=== PATIENT | female | born 1980 | race African-American/Black ===

== ENCOUNTER 2025-01-09 16:41 | Inpatient (IN) | payer OTHER, SELFPAY ==
[2025-01-09 16:52] VITALS: BP 160/100; PULSE 60; O2SAT 98
[2025-01-09 17:18] VITALS: BP 158/88; PULSE 67; RESP 16; TEMP 36.8; O2SAT 100; BMI 33.0
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
[2025-01-09 17:28] LABS: MANUAL DIFF FLAG NO
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
--- NOTE | 2025-01-09 17:29 | MHC.EDTECH ---
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
[2025-01-09 17:44] LABS: Basophils Percent Auto 0.8 % (0-2); Eosinophils Absolute Auto 0.1 X10*3/uL (0.0-0.4); Eosinophils Percent Auto 2.9 % (0-4); Hematocrit 39.7 % (37.0-47.0); Hemoglobin 13.1 g/dl (12.0-16.0); Imm Gran Abs Auto 0.01 X10*3/uL (0.00-0.03); Imm Gran Pct Auto 0.3 % (0.0-0.4); Lymphocytes Percent Auto 54.4 % (20-40); Mean Corpuscular Hemoglobin 29.4 pg (27.0-33.0); Mean Platelet Volume 10.5 fL (9.4-12.3); Monocytes Absolute Auto 0.5 X10*3/uL (0.1-1.2); Monocytes Percent Auto 13.7 % (2-11); Neutrophils Percent Auto 27.9 % (45-73); Platelet Count 279 X10*3/uL (160-400); Red Blood Count 4.46 X10*6/uL (4.20-5.50); Red Cell Distribution Width 12.4 % (11.0-16.0); White Blood Count 3.7 X10*3/uL (4.8-10.8)
[2025-01-09 17:45] LABS: Acetaminophen LAB < 3 mcg/mL (<30); Salicylate < 5.0 mg/dL (15-30)
[2025-01-09 17:52] LABS: Alanine Aminotransferase 12 U/L (0-31); Albumin Level 3.9 g/dL (3.5-5.0); Alkaline Phosphatase 82 U/L (39-117); Anion Gap 12 (12-20); Aspartate Amino Transferase 26 U/L (5-31); Bilirubin Total 0.4 mg/dL (0.0-1.0); Blood Urea Nitrogen 7 mg/dL (9-16); Calcium 9.2 mg/dL (8.4-10.2); Carbon Dioxide 26 mmol/L (22-29); Chloride 103 mmol/L (96-108); Creatinine Clr Calc Pharmacy 114.7; Estimated Glomerular Filt Rate > 60; Ethanol < 10 mg/dL; Glucose Random 84 mg/dL (60-115); HCG Quantitative < 2 mIU/mL; Magnesium 1.6 mg/dL (1.6-2.6); Potassium 3.7 mmol/L (3.3-5.1); Sodium 137 mmol/L (135-145); Total Protein 7.3 g/dL (6.5-8.0)
[2025-01-09] MEDS: FLUoxetine HCl 20 MG CAPSULE PO (18:39)
[2025-01-09] MEDS: busPIRone HCl 10 MG TABLET PO (18:39)
[2025-01-09] MEDS: OXcarbazepine 300 MG TABLET PO (18:39)
[2025-01-09] MEDS: QUEtiapine Fumarate 200 MG TABLET PO (18:39)
[2025-01-09 19:05] LABS: Appearance Urine Cloudy; Color Urine Yellow; Glucose Urine UA Negative (Negative); Leukocyte Esterase Urine Negative (Negative); Nitrite Urine Negative (Negative); PH 5.5 (5.0-9.0); Urine Blood Negative (Negative); Urine Ketones 15 mg/dL (Negative); Urine Protein Negative (Neg-Trace)
[2025-01-09 19:17] LABS: Amphetamine Screen Urine Not Detected (Not Detect); Barbiturates, Urine Not Detected (Not Detect); Benzodiazepines Screen Urine Not Detected (Not Detect); Buprenorphine Scr Positive (Not Detect); Cannabinoid Screen Urine Not Detected (Not Detect); Cocaine Screen Urine Not Detected (Not Detect); Fentanyl, urine Not Detected (Not Detect); Methadone Screen, Urine Not Detected (Not Detect); Opiate Screen Urine Not Detected (Not Detect); Oxycodone Screen Urine Not Detected (Not Detect); Phencyclidine Screen Urine Not Detected (Not Detect)
--- NOTE | 2025-01-09 20:07 | PC.NURSE ---
pt a&ox4, respirations even and unlabored. pt medicated prior to this rn, pt tolerating well and sleeping.
[2025-01-09 20:42] VITALS: BP 105/62; PULSE 72; RESP 16; O2SAT 99
[2025-01-10] MEDS: diazePAM 5 MG TABLET PO ×3 (01:34→20:47)
--- NOTE | 2025-01-10 01:39 | PC.NURSE ---
pt reporting increased anxiety at this time, pt medicated per nov. pt given ice cream per request.
[2025-01-10 06:30] VITALS: BP 152/64; PULSE 58; RESP 16; TEMP 36.9; O2SAT 95
--- NOTE | 2025-01-10 07:58 | PC.NURSE ---
Care team meeting with pt at bedside
--- NOTE | 2025-01-10 09:33 | PHA.MEDREC ---
Addendum entered by [facility] 01/10/25 09:47: PDMP also confirms patient is picking up suboxone 04/17 and suboxone 4/ with same dosing Original Note: Pharmacy Consult ? Medication Reconciliation Pharmacy has reviewed the medication reconciliation done by RN. This [facility] obtained the list the RN used to completed the med list and this [facility] noticed several discrepancies. RN omitted omeprazole and ventolin. RN also had the incorrect dosing of suboxone.
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
[2025-01-10 10:25] VITALS: BP 128/73; PULSE 63; RESP 16; TEMP 36.7; O2SAT 96
[2025-01-10 10:30] VITALS: BP 128/73
[2025-01-10] MEDS: OXcarbazepine 300 MG TABLET PO ×2 (10:30→19:21)
[2025-01-10] MEDS: busPIRone HCl 10 MG TABLET PO ×2 (10:30→19:21)
[2025-01-10] MEDS: lisinopriL 40 MG TABLET PO (10:30)
[2025-01-10] MEDS: hydroCHLOROthiazide 25 MG TABLET PO (10:30)
[2025-01-10] MEDS: FLUoxetine HCl 20 MG CAPSULE PO (10:30)
[2025-01-10] MEDS: QUEtiapine Fumarate 200 MG TABLET PO ×3 (10:31→19:20)
--- NOTE | 2025-01-10 10:52 | MHC.CARE ---
Pt will be an adult inpatient bedsearch.
[2025-01-10] MEDS: Buprenorphine/Naloxone 8/2 mg FILM 1 FILM BUCCAL ×2 (11:19→19:20)
[2025-01-10 15:35] VITALS: BP 100/67; PULSE 72; RESP 18; TEMP 36.1; O2SAT 96
--- NOTE | 2025-01-10 17:09 | MHC.EDTECH ---
Patient arrived to pod wearing all jewelry after changeover. This tech discussed removing jewelry with patient. Patient agreeable. Removed four white rings four white ear rings. Now stored with patients belongings. Patient kept two nose rings in. RN aware.
[2025-01-10] MEDS: OLANZapine 7.5 MG TABLET 15 MG PO (19:20)
[2025-01-10] MEDS: traZODone HCL 50 MG TABLET 150 MG PO (19:21)
--- NOTE | 2025-01-11 | ECG_ITS ---
Test Reason : R/O PROLONGED QT Blood Pressure : */* mmHG Vent. Rate : 66 BPM Atrial Rate : 66 BPM P-R Int : 156 ms QRS Dur : 90 ms QT Int : 434 ms P-R-T Axes : 39 32 23 degrees QTcB Int : 454 ms Normal sinus rhythm Normal ECG No previous ECGs available Referred By: Lincoln Hopson Electronically Signed By: Hernan Costello
[2025-01-11 06:06] VITALS: RESP 16
--- NOTE | 2025-01-11 06:33 | PC.NURSE ---
Patient slept through the night, no distress observed/reported, meds and meals compliant, 15 minuets safety check, no behavior and safety concerns, disposition per care team is section-12 inpatient bed search, will continue to monitor
--- NOTE | 2025-01-11 07:18 | PC.NURSE ---
Assumed pt care at 0645. Pt appears to be asleep. respirations even and unlabored. Continue plan of care for in patient bedsearch
[2025-01-11 08:32] VITALS: BP 110/67; PULSE 61; RESP 14; TEMP 36.6; O2SAT 97
[2025-01-11] MEDS: Buprenorphine/Naloxone 8/2 mg FILM 1 FILM BUCCAL ×2 (09:17→20:32)
[2025-01-11] MEDS: Pantoprazole Sodium 20 MG TABLET.DR 40 MG PO (09:18)
[2025-01-11] MEDS: OXcarbazepine 300 MG TABLET PO (09:18)
[2025-01-11] MEDS: busPIRone HCl 10 MG TABLET PO ×2 (09:18→20:29)
[2025-01-11] MEDS: FLUoxetine HCl 20 MG CAPSULE PO (09:18)
[2025-01-11] MEDS: hydroCHLOROthiazide 25 MG TABLET PO (09:19)
[2025-01-11] MEDS: lisinopriL 40 MG TABLET PO (09:19)
[2025-01-11] MEDS: QUEtiapine Fumarate 200 MG TABLET PO ×3 (09:19→20:29)
[2025-01-11] MEDS: hydrOXYzine HCL 50 MG TABLET PO ×3 (09:32→18:57)
[2025-01-11] MEDS: Buprenorphine/Naloxone 4/1 mg FILM 1 FILM BUCCAL (09:33)
--- NOTE | 2025-01-11 12:08 | PC.NURSE ---
Pt anxious and asking for trazadone. MD made aware and feels comfortable ordering zyprexa. Awaiting order
[2025-01-11] MEDS: OLANZapine 10 MG TABLET PO ×2 (12:11→20:29)
[2025-01-11 13:34] VITALS: BP 152/86; PULSE 68; RESP 18; TEMP 36.4; O2SAT 100
[2025-01-11 13:35] VITALS: BMI 34.4
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
[2025-01-11 20:00] VITALS: BP 109/73; PULSE 87; RESP 18; TEMP 36.9; O2SAT 97
[2025-01-11] MEDS: OXcarbazepine 150 MG TABLET 450 MG PO (20:29)
[2025-01-11] MEDS: traZODone HCL 50 MG TABLET 150 MG PO (20:29)
[2025-01-12] MEDS: hydrOXYzine HCL 50 MG TABLET PO ×2 (03:31→11:34)
[2025-01-12 07:39] VITALS: BP 107/68; PULSE 73; RESP 16; TEMP 36.5; O2SAT 100
[2025-01-12] MEDS: Buprenorphine/Naloxone 8/2 mg FILM 1 FILM BUCCAL ×2 (08:34→20:39)
[2025-01-12] MEDS: FLUoxetine HCl 20 MG CAPSULE 40 MG PO (08:34)
[2025-01-12] MEDS: Omeprazole 40 MG CAPSULE.DR PO (08:34)
[2025-01-12] MEDS: Buprenorphine/Naloxone 4/1 mg FILM 1 FILM BUCCAL (08:34)
[2025-01-12] MEDS: lisinopriL 40 MG TABLET PO (08:35)
[2025-01-12] MEDS: OXcarbazepine 150 MG TABLET 450 MG PO ×2 (08:35→20:38)
[2025-01-12] MEDS: busPIRone HCl 10 MG TABLET PO ×3 (08:35→20:38)
[2025-01-12] MEDS: hydroCHLOROthiazide 25 MG TABLET PO (08:35)
[2025-01-12] MEDS: Pantoprazole Sodium 20 MG TABLET.DR 40 MG PO (08:35)
[2025-01-12] MEDS: QUEtiapine Fumarate 200 MG TABLET PO ×3 (08:35→20:38)
[2025-01-12] MEDS: Nicotine 21 MG PATCH.TD24 TRANSDERMA (08:38)
[2025-01-12 09:04] LABS: Estimated Average Glucose 94 mg/dL; Hemoglobin A1C 98.6397 umol/L; Hemoglobin A1c % 4.9 % (<6.0); Total Hemoglobin (HGBA1C) 3281.2244 umol/L
[2025-01-12 09:17] LABS: Alanine Aminotransferase 60 U/L (0-31); Albumin Level 3.3 g/dL (3.5-5.0); Alkaline Phosphatase 87 U/L (39-117); Anion Gap 11 (12-20); Aspartate Amino Transferase 78 U/L (5-31); Bilirubin Total 0.2 mg/dL (0.0-1.0); Blood Urea Nitrogen 8 mg/dL (9-16); Calcium 8.6 mg/dL (8.4-10.2); Carbon Dioxide 27 mmol/L (22-29); Chloride 104 mmol/L (96-108); Cholesterol 129 mg/dL (<200); Creatinine Clr Calc Pharmacy 118.7; Estimated Glomerular Filt Rate > 60; Glucose Random 97 mg/dL (60-115); HDL Cholesterol 38 mg/dL (>40); LDL Cholesterol Calculated 67 mg/dL (<100); Potassium 4.1 mmol/L (3.3-5.1); Sodium 138 mmol/L (135-145); Total Protein 6.5 g/dL (6.5-8.0); Triglycerides 124 mg/dL (<150)
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
[2025-01-12] MEDS: QUEtiapine Fumarate 50 MG TABLET PO (13:38)
[2025-01-12 20:00] VITALS: BP 124/86; PULSE 88; RESP 18; TEMP 36.8; O2SAT 100
[2025-01-12] MEDS: traZODone HCL 50 MG TABLET 150 MG PO (20:37)
[2025-01-12] MEDS: OLANZapine 10 MG TABLET PO (20:38)
[2025-01-13] MEDS: QUEtiapine Fumarate 50 MG TABLET PO ×3 (00:40→20:35)
[2025-01-13 07:36] VITALS: BP 104/66; PULSE 72; RESP 14; TEMP 36.4; O2SAT 100
[2025-01-13] MEDS: FLUoxetine HCl 20 MG CAPSULE 40 MG PO (08:42)
[2025-01-13] MEDS: Pantoprazole Sodium 20 MG TABLET.DR 40 MG PO (08:42)
[2025-01-13] MEDS: QUEtiapine Fumarate 200 MG TABLET PO ×3 (08:42→20:32)
[2025-01-13] MEDS: Omeprazole 40 MG CAPSULE.DR PO (08:42)
[2025-01-13] MEDS: OXcarbazepine 150 MG TABLET 450 MG PO ×2 (08:42→20:32)
[2025-01-13] MEDS: busPIRone HCl 10 MG TABLET PO ×3 (08:43→20:32)
[2025-01-13] MEDS: Buprenorphine/Naloxone 8/2 mg FILM 1 FILM BUCCAL ×3 (08:44→20:33)
[2025-01-13] MEDS: Buprenorphine/Naloxone 4/1 mg FILM 1 FILM BUCCAL (08:44)
[2025-01-13 08:48] VITALS: BP 108/57
[2025-01-13] MEDS: hydroCHLOROthiazide 25 MG TABLET PO (08:48)
[2025-01-13 08:49] VITALS: BP 108/57
[2025-01-13] MEDS: lisinopriL 40 MG TABLET PO (08:49)
--- NOTE | 2025-01-13 09:22 | HO.PSYCHPN ---
Subjective Subjective Date of Service: 01/13/25 Reason For Visit: SI Subjective Notes: 3 Day Interim History: 3 day up on 01/15/25. Patient reports feeling anxious about where she plans on going after discharge. per social work, pt was declined from [facility]. Patient would like to return to [facility] if possible; if not, pt [place] [facility]. denies side effects from medication changes. denies SI/HI/VH/AH. Decrease zyprexa to 5mg PO bedtime. Medication Compliance: Yes Side effects from medications: No Attending Groups: Intermittent Mental Status Exam Mental Status Exam Narrative: Pt is alert and oriented; behavior is cooperative and calm; dressed in casual attire; mood is described as anxious ; eye contact appropriate; Speech is normal rate, volume and not pressured; thought process is organized and goal directed; Thought content is on discharge; denies SI/HI/VH/AH. Diagnostics Vital Signs (24Hr): Vital Signs - 24 hr 01/12/25 20:00 01/13/25 07:36 01/13/25 08:48 Temperature 98.3 F 97.6 F Pulse Rate 88 72 Respiratory Rate 18 14 Blood Pressure 124/86 104/66 108/57 L Pulse Oximetry 100 100 Oxygen Delivery Method Room Air Room Air 01/13/25 08:49 Temperature Pulse Rate Respiratory Rate Blood Pressure 108/57 L Pulse Oximetry Oxygen Delivery Method BMI result Body Mass Index 34.4 Labs 01/09/25 17:25 01/12/25 07:57 Labs: Laboratory Results - last 48 hr 01/12/25 07:57 Sodium 138 Potassium 4.1 Chloride 104 Carbon Dioxide 27 Anion Gap 11 L BUN 8 L Creatinine 0.80 Estim Creat Clear Calc 118.7 Estimated GFR > 60 Random Glucose 97 Estimat Average Glucose 94 Hemoglobin A1c % 4.9 Calcium 8.6 D Total Bilirubin 0.2 AST 78 H ALT 60 H Alkaline Phosphatase 87 Total Protein 6.5 Albumin 3.3 L Triglycerides 124 Cholesterol 129 LDL Cholesterol, Calc 67 HDL Cholesterol 38 L Medications Medications Current Medications Acetaminophen (Acetaminophen 325 Mg Tablet) 650 mg PO Q6H PRN PRN Reason: Headache/Pain, Scale 1-10 Al Hydroxide/Mg Hydroxide (Magnesium Hydrox/Alum Hydrox 30 Ml Oral.Susp) 30 ml PO Q6H PRN PRN Reason: Heartburn/Nausea Albuterol Sulfate (Albuterol Sulfate 90 Mcg 8 Gm Inhaler) 2 puff INHALE Q4H PRN PRN Reason: Wheezing Buprenorphine/Naloxone (Buprenorphine/Naloxone 8/2 Mg Film) 1 film BUCCAL BID [facility] Last Admin: 01/13/25 08:44 Dose: 1 film Buprenorphine/Naloxone (Buprenorphine/Naloxone 4/1 Mg Film) 1 film BUCCAL DAILY [facility] Last Admin: 01/13/25 08:44 Dose: 1 film Buspirone HCl (Buspirone Hcl 10 Mg Tablet) 10 mg PO TID [facility] Last Admin: 01/13/25 08:43 Dose: 10 mg Fluoxetine HCl (Fluoxetine Hcl 20 Mg Capsule) 40 mg PO DAILY [facility] Last Admin: 01/13/25 08:42 Dose: 40 mg Hydrochlorothiazide (Hydrochlorothiazide 25 Mg Tablet) 25 mg PO DAILY [facility]; Protocol Last Admin: 01/13/25 08:48 Dose: 25 mg Lisinopril (Lisinopril 40 Mg Tablet) 40 mg PO DAILY [facility]; Protocol Last Admin: 01/13/25 08:49 Dose: 40 mg Magnesium Hydroxide (Milk Of Magnesia 30 Ml Oral.Susp) 30 ml PO DAILY PRN PRN Reason: Constipation Nicotine (Nicotine 21 Mg Patch.Td24) 21 mg TRANSDERMA DAILY [facility] Last Admin: 01/13/25 09:02 Dose: Not Given Nicotine Polacrilex (Nicotine Polacrilex 2 Mg Gum) 4 mg BUCCAL Q2H PRN PRN Reason: Nicotine Cravings Olanzapine (Olanzapine 10 Mg Tablet) 10 mg PO BEDTIME [facility] Last Admin: 01/12/25 20:38 Dose: 10 mg Omeprazole (Omeprazole 40 Mg Capsule.Dr) 40 mg PO DAILY [facility] Last Admin: 01/13/25 08:42 Dose: 40 mg Oxcarbazepine (Oxcarbazepine 150 Mg Tablet) 450 mg PO BID [facility] Last Admin: 01/13/25 08:42 Dose: 450 mg Pantoprazole Sodium (Pantoprazole Sodium 20 Mg Tablet.Dr) 40 mg PO DAILY [facility] Last Admin: 01/13/25 08:42 Dose: 40 mg Quetiapine Fumarate (Quetiapine Fumarate 200 Mg Tablet) 200 mg PO TID [facility] Last Admin: 01/13/25 08:42 Dose: 200 mg Quetiapine Fumarate (Quetiapine Fumarate 50 Mg Tablet) 50 mg PO TID PRN PRN Reason: Anxiety Last Admin: 01/13/25 00:40 Dose: 50 mg Trazodone HCl (Trazodone Hcl 50 Mg Tablet) 150 mg PO BEDTIME [facility] Last Admin: 01/12/25 20:37 Dose: 150 mg Allergies Allergies Allergy/AdvReac Type Severity Reaction Status Date / Time No Known Allergies Allergy Verified 01/09/25 17:21 Assessment & Plan Assessment & Plan (1) MDD (major depressive disorder), recurrent episode, severe: Status: Acute Code(s): F33.2 - Major depressive disorder, recurrent severe without psychotic features (2) PTSD (post-traumatic stress disorder): Status: Acute Code(s): F43.10 - Post-traumatic stress disorder, unspecified (3) Alcohol use disorder: Status: Acute Code(s): F10.90 - Alcohol use, unspecified, uncomplicated (4) Opioid use disorder: Status: Acute Code(s): F11.90 - Opioid use, unspecified, uncomplicated (5) Homelessness: Status: Acute Code(s): Z59.00 - Homelessness unspecified Plan Patient is a 44-year-old female with history of MDD, PTSD, alcohol use disorder and opiate use disorder who arrived via ambulance to ED due to increased depression and suicidal ideation secondary to medication noncompliance. Plan: CV 15 minute safety checks Continue home medications Increase: Buspirone to 10 mg PO TID Fluoxetine to 40 mg PO daily Oxcarbazepine to 450 mg BID Decrease olanzapine to 10 mg PO bedtime Obtain collateral Referral to outpatient psychiatric providers Encourage groups Referral to [facility] [place] [facility] Discharge planning 01/12: Active on unit. attending groups. showered. Patient continues to report feeling anxious and depressed; pt stated, my urine at the program came back positive for marijuana and benzos. If I wanted to use then I would have left the program and used. It's causing me stress . Patient reports she would like to return to the program if she is not able to go to a [facility] [place] [facility]. denies any side effects from medication changes. denies SI/HI/VH/AH. pt stated, I wouldn't hurt myself because I got to be there for my kids . per nursing slept 7 hours. 01/13: 3 day up on 01/15/25. Patient reports feeling anxious about where she plans on going after discharge. per social work, pt was declined from [facility]. Patient would like to return to [facility] if possible; if not, pt plans on going [place] [facility]. denies side effects from medication changes. denies SI/HI/VH/AH. Decrease zyprexa to 5mg PO bedtime Patient educated on: diagnosis and medication risk/benefits Reason for continued inpatient stay Substantial Risk for: med/psych decompensation Time Spent With Patient Time: Total time managing care of this patient today _20___ minutes.
--- NOTE | 2025-01-13 13:21 | MHC.RECOVRN ---
AUDIT-C Brief Intervention Pt had positive screen for unhealthy alcohol use on admission. Attempted to meet with pt to discuss alcohol use and offer resources, including DION initiation and referral for outpatient AUD treatment, pt declined all.
[2025-01-13 19:45] VITALS: BP 101/59; PULSE 80; RESP 16; TEMP 36.6; O2SAT 97
[2025-01-13] MEDS: OLANZapine 5 MG TABLET PO (20:31)
[2025-01-13] MEDS: traZODone HCL 50 MG TABLET 150 MG PO (20:32)
[2025-01-14 07:39] VITALS: BP 101/57; PULSE 69; RESP 16; TEMP 36.6; O2SAT 94
[2025-01-14] MEDS: Pantoprazole Sodium 20 MG TABLET.DR 40 MG PO (08:28)
[2025-01-14] MEDS: busPIRone HCl 10 MG TABLET PO (08:29)
[2025-01-14] MEDS: FLUoxetine HCl 20 MG CAPSULE 40 MG PO (08:29)
[2025-01-14] MEDS: QUEtiapine Fumarate 200 MG TABLET PO (08:30)
[2025-01-14] MEDS: OXcarbazepine 150 MG TABLET 450 MG PO (08:30)
[2025-01-14] MEDS: Buprenorphine/Naloxone 8/2 mg FILM 1 FILM BUCCAL (08:34)
[2025-01-14] MEDS: QUEtiapine Fumarate 50 MG TABLET PO (09:16)
[2025-01-14 09:22] VITALS: BP 101/53
--- NOTE | 2025-01-14 11:02 | P.PNPSI_ITS ---
Subjective Subjective Reason For Visit: SI Diagnostics Vital Signs (24Hr): Vital Signs - 24 hr 01/13/25 19:45 01/14/25 07:39 01/14/25 09:22 Temperature 97.8 F 97.9 F Pulse Rate 80 69 Respiratory Rate 16 16 Blood Pressure 101/59 L 101/57 L 101/53 L Pulse Oximetry 97 94 Oxygen Delivery Method Room Air Room Air BMI result Body Mass Index 34.4 Labs 01/09/25 17:25 01/12/25 07:57 Medications Medications Current Medications Acetaminophen (Acetaminophen 325 Mg Tablet) 650 mg PO Q6H PRN PRN Reason: Headache/Pain, Scale 1-10 Al Hydroxide/Mg Hydroxide (Magnesium Hydrox/Alum Hydrox 30 Ml Oral.Susp) 30 ml PO Q6H PRN PRN Reason: Heartburn/Nausea Albuterol Sulfate (Albuterol Sulfate 90 Mcg 8 Gm Inhaler) 2 puff INHALE Q4H PRN PRN Reason: Wheezing Buprenorphine/Naloxone (Buprenorphine/Naloxone 8/2 Mg Film) 1 film BUCCAL TID [facility] Last Admin: 01/14/25 08:34 Dose: 1 film Buspirone HCl (Buspirone Hcl 10 Mg Tablet) 10 mg PO TID [facility] Last Admin: 01/14/25 08:29 Dose: 10 mg Fluoxetine HCl (Fluoxetine Hcl 20 Mg Capsule) 40 mg PO DAILY [facility] Last Admin: 01/14/25 08:29 Dose: 40 mg Hydrochlorothiazide (Hydrochlorothiazide 25 Mg Tablet) 25 mg PO DAILY [facility]; Protocol Last Admin: 01/14/25 09:22 Dose: Not Given Lisinopril (Lisinopril 40 Mg Tablet) 40 mg PO DAILY [facility]; Protocol Last Admin: 01/14/25 09:23 Dose: Not Given Magnesium Hydroxide (Milk Of Magnesia 30 Ml Oral.Susp) 30 ml PO DAILY PRN PRN Reason: Constipation Nicotine (Nicotine 21 Mg Patch.Td24) 21 mg TRANSDERMA DAILY [facility] Last Admin: 01/14/25 09:16 Dose: Not Given Nicotine Polacrilex (Nicotine Polacrilex 2 Mg Gum) 4 mg BUCCAL Q2H PRN PRN Reason: Nicotine Cravings Oxcarbazepine (Oxcarbazepine 150 Mg Tablet) 450 mg PO BID [facility] Last Admin: 01/14/25 08:30 Dose: 450 mg Pantoprazole Sodium (Pantoprazole Sodium 20 Mg Tablet.Dr) 40 mg PO DAILY [facility] Last Admin: 01/14/25 08:28 Dose: 40 mg Quetiapine Fumarate (Quetiapine Fumarate 200 Mg Tablet) 200 mg PO TID [facility] Last Admin: 01/14/25 08:30 Dose: 200 mg Quetiapine Fumarate (Quetiapine Fumarate 50 Mg Tablet) 50 mg PO TID PRN PRN Reason: Anxiety Last Admin: 01/14/25 09:16 Dose: 50 mg Trazodone HCl (Trazodone Hcl 50 Mg Tablet) 150 mg PO BEDTIME [facility] Last Admin: 01/13/25 20:32 Dose: 150 mg Allergies Allergies Allergy/AdvReac Type Severity Reaction Status Date / Time No Known Allergies Allergy Verified 01/09/25 17:21 Assessment & Plan Assessment & Plan (1) MDD (major depressive disorder), recurrent episode, severe: Status: Acute Code(s): F33.2 - Major depressive disorder, recurrent severe without psychotic features (2) PTSD (post-traumatic stress disorder): Status: Acute Code(s): F43.10 - Post-traumatic stress disorder, unspecified (3) Alcohol use disorder: Status: Acute Code(s): F10.90 - Alcohol use, unspecified, uncomplicated (4) Opioid use disorder: Status: Acute Code(s): F11.90 - Opioid use, unspecified, uncomplicated (5) Homelessness: Status: Acute Code(s): Z59.00 - Homelessness unspecified Plan Patient is a 44-year-old female with history of MDD, PTSD, alcohol use disorder and opiate use disorder who arrived via ambulance to ED due to increased depression and suicidal ideation secondary to medication noncompliance. Plan: CV 15 minute safety checks Continue home medications Increase: Buspirone to 10 mg PO TID Fluoxetine to 40 mg PO daily Oxcarbazepine to 450 mg BID Decrease olanzapine to 10 mg PO bedtime Obtain collateral Referral to outpatient psychiatric providers Encourage groups Referral to outpatient domestic violence senior living Discharge planning 01/12: Active on unit. attending groups. showered. Patient continues to report feeling anxious and depressed; pt stated, my urine at the program came back positive for marijuana and benzos. If I wanted to use then I would have left the program and used. It's causing me stress . Patient reports she would like to return to the program if she is not able to go to a domestic violence senior living. denies any side effects from medication changes. denies SI/HI/VH/AH. pt stated, I wouldn't hurt myself because I got to be there for my kids . per nursing slept 7 hours. 01/13: 3 day up on 01/15/25. Patient reports feeling anxious about where she plans on going after discharge. per social work, pt was declined from [facility]. Patient would like to return to [facility] if possible; if not, pt plans on going to senior living. denies side effects from medication changes. denies SI/HI/VH/AH. Decrease zyprexa to 5mg PO bedtime Time Spent With Patient Time: Total time managing care of this patient today ____ minutes.
--- NOTE | 2025-01-14 11:25 | P.DS_ITS ---
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 Attending physician on discharge: Wallace Lacy Discharging clinician: Leydi Story DS: Diagnosis Discharge Diagnosis (1) MDD (major depressive disorder), recurrent episode, severe: Status: Acute (2) PTSD (post-traumatic stress disorder): Status: Acute (3) Alcohol use disorder: Status: Acute (4) Opioid use disorder: Status: Acute (5) Homelessness: Status: Acute DS: Medications Discharge Medications Home Medications: Home Medications ?Medication ?Instructions ?Recorded ?Confirmed albuterol sulfate 90 mcg/actuation 2 puff inhalation Q4-6H PRN 01/10/25 01/10/25 aerosol inhaler Wheezing buprenorphine 4 mg-naloxone 1 mg 1 film buccal DAILY 01/10/25 01/10/25 sublingual film (Suboxone) buprenorphine 8 mg-naloxone 2 mg 1 film buccal TID 01/10/25 01/13/25 sublingual film (Suboxone) buspirone 10 mg tablet 10 mg PO BID 01/10/25 01/10/25 fluoxetine 20 mg capsule 20 mg PO DAILY 01/10/25 01/10/25 hydrochlorothiazide 25 mg tablet 25 mg PO DAILY 01/10/25 01/10/25 lisinopril 40 mg tablet 40 mg PO DAILY 01/10/25 01/10/25 olanzapine 15 mg tablet 15 mg PO BEDTIME 01/10/25 01/10/25 omeprazole 40 mg capsule,delayed 40 mg PO DAILY 01/10/25 01/10/25 release oxcarbazepine 300 mg tablet 300 mg PO BID 01/10/25 01/10/25 pantoprazole 40 mg tablet,delayed 40 mg PO DAILY 01/10/25 01/10/25 release quetiapine 200 mg tablet 200 mg PO TID 01/10/25 01/10/25 trazodone 150 mg tablet 150 mg PO BEDTIME 01/10/25 01/10/25 Mental Status Exam Mental Status Exam Narrative: Pt is alert and oriented; behavior is cooperative and calm; dressed in casual attire; mood is described as good ; eye contact appropriate; Speech is normal rate, volume and not pressured; thought process is organized and goal directed; Thought content is on discharge; denies SI/HI/VH/AH. Data Data Completed and Pending Completed studies during hospitalization [Text1]: 01/09/25 01/09/25 01/12/25 17:25 18:56 07:57 WBC 3.7 L RBC 4.46 Hgb 13.1 Hct 39.7 MCV 89.0 MCH 29.4 MCHC 33.0 RDW 12.4 Plt Count 279 MPV 10.5 Immature Gran % (Auto) 0.3 Neut % (Auto) 27.9 L Lymph % (Auto) 54.4 H [place] % (Auto) 13.7 H Eos % (Auto) 2.9 Baso % (Auto) 0.8 Lymph # (Auto) 2.0 [place] # (Auto) 0.5 Eos # (Auto) 0.1 Baso # (Auto) 0.0 Abs Immat Gran (auto) 0.01 Absolute Neuts (auto) 1.0 L Absolute Nucleated RBC 0.000 Nucleated RBC % (auto) 0.0 Sodium 137 138 Potassium 3.7 4.1 Chloride 103 104 Carbon Dioxide 26 27 Anion Gap 12 11 L BUN 7 L 8 L Creatinine 0.81 0.80 Estim Creat Clear Calc 114.7 118.7 Estimated GFR > 60 > 60 Random Glucose 84 97 Estimat Average Glucose 94 Hemoglobin A1c % 4.9 Calcium 9.2 8.6 D Magnesium 1.6 Total Bilirubin 0.4 0.2 AST 26 78 H ALT 12 60 H Alkaline Phosphatase 82 87 Total Protein 7.3 6.5 Albumin 3.9 3.3 L Triglycerides 124 Cholesterol 129 LDL Cholesterol, Calc 67 HDL Cholesterol 38 L Beta HCG, Quant < 2 Urine Color Yellow Urine Appearance Cloudy Urine pH 5.5 Ur Specific [place] 1.020 Urine Protein Negative Urine Glucose (UA) Negative Urine Ketones 15 Urine Blood Negative Urine Nitrite Negative Ur Leukocyte Esterase Negative Salicylates < 5.0 L Urine Opiates Screen Not Detected Ur Buprenorphine Scrn Positive H Ur Oxycodone Screen Not Detected Urine Methadone Screen Not Detected Urine Fentanyl Screen Not Detected Acetaminophen < 3 Ur Barbiturates Screen Not Detected Ur Phencyclidine Scrn Not Detected Ur Amphetamines Screen Not Detected U Benzodiazepines Scrn Not Detected Urine Cocaine Screen Not Detected U Marijuana (THC) Screen Not Detected Ethyl Alcohol < 10 DS: Summary Hospital Course Hospital Course: Patient is a 44-year-old female with history of MDD, PTSD, alcohol use disorder and opiate use disorder who arrived via ambulance to ED due to increased depression and suicidal ideation secondary to medication noncompliance. Per crisis report, patient arrived at ER via ambulance from [facility], she has been in recovery since December 02. Patient reports she has been off of her medications since entering the facility and has worsening depression, recent contact with ex-boyfriend/drug dealer, HI towards ex-boyfriend and SI with a plan to starve herself or slit her wrists. Patient has a history of inpatient psychiatric hospitalizations and substance use treatment. History of suicide attempt. Patient reports she has been off her psychiatric medications for approximately 2 weeks. She reports her ex-boyfriend recently contacted her making her fearful and elevating her anxiety and depression. denies AH/VH. Utox positive for buprenorphine. During admission assessment, patient presents alert and oriented x3. Calm and cooperative. Patient reports feeling anxious and depressed; patient stated, I got a text message from my ex who is also my dealer. He told me that he is going to make me his drug dule again and there is no running from him. I haven't heard from him since 2022 . Patient reports she feels that her psychiatric medications need to either be bumped up or changed . She reports difficulty sleeping at night. Patient reports feeling hopeless and reports suicidal ideation with no plan. Denies HI/VH/AH. Patient reports she would like referrals to outpatient psychiatric providers and to go to a domestic violence detention. Plan: CV 15 minute safety checks Continue home medications Increase: Buspirone to 10 mg PO TID Fluoxetine to 40 mg PO daily Oxcarbazepine to 450 mg BID Decrease olanzapine to 10 mg PO bedtime Obtain collateral Referral to outpatient psychiatric providers Encourage groups Referral to outpatient domestic violence detention Discharge planning Active on unit. attending groups. showered. Patient continues to report feeling anxious and depressed; pt stated, my urine at the program came back positive for marijuana and benzos. If I wanted to use then I would have left the program and used. It's causing me stress . Patient reports she would like to return to the program if she is not able to go to a domestic violence detention. denies any side effects from medication changes. denies SI/HI/VH/AH. pt stated, I wouldn't hurt myself because I got to be there for my kids . per nursing slept 7 hours. 3 day up on 01/15/25. Patient reports feeling anxious about where she plans on going after discharge. per social work, pt was declined from [facility]. Patient would like to return to [facility] if possible; if not, pt plans on going to detention. denies side effects from medication changes. denies SI/HI/VH/AH. Decrease zyprexa to 5mg PO bedtime Patient reports feeling good today; she is requesting to be discharged. Pt stated, I feel ready to go. I plan on going to [facility], getting my things and my going to stay with my sister in [place] . denies SI/HI/VH/AH. Status at Discharge Cognitive/behavioral status at discharge: Patient has insight and demonstrates good judgment in terms of wanting to pursue treatment. Patient has a safety plan that includes presenting to the closest ER or calling 911 if feeling unsafe. Functional status at discharge: independent ambulation Overall status at discharge: patient is back to baseline Time Spent with Patient Time attestation: Total time managing care of this patient today _20___ minutes. Time spent: Less than 30 minutes Discharge Plan Discharge Anticipated Discharge Date/Time: 01/14/25 12:00 Patient Disposition: Home, Self-Care Discharge Diagnosis: MDD, PTSD, opioid use d/o, Alcohol use d/o Referrals: Behavioral Health Hydraulic Technician: Natalie ([facility]) [Other] - 1 Week (Natalie can be reached at Ext. [phone]. She is referring you to a keycase assembler to assist with applying for housing and accessing other housing resources. Follow up with her as needed) [facility] [Other] - 1 Week (You can call the above number / or walk-in 7 days a week 9am-5pm to request assistance in receiving mental health services or other resources ) Physician,None [Primary Care Provider] - 1 Week Discharge Medications: New oxcarbazepine 150 mg Tablet 450 mg PO BID 7 Days Qty: 42 0RF fluoxetine 40 mg capsule 40 mg PO DAILY 30 Days Qty: 30 0RF buspirone 10 mg Tablet 10 mg PO TID 30 Days Qty: 90 0RF quetiapine 50 mg Tablet 50 mg PO BID PRN (Reason: Anxiety) 30 Days Qty: 60 0RF Continued albuterol sulfate 90 mcg/actuation Hfa Aerosol Inhaler 2 puff INHALATION Q4-6H PRN (Reason: Wheezing) quetiapine 200 mg tablet 200 mg PO TID 30 Days Qty: 90 0RF pantoprazole 40 mg tablet,delayed release (DR/EC) 40 mg PO DAILY 30 Days Qty: 30 0RF trazodone 150 mg tablet 150 mg PO BEDTIME 30 Days Qty: 30 0RF hydrochlorothiazide 25 mg tablet 25 mg PO DAILY 30 Days Qty: 30 0RF lisinopril 40 mg tablet 40 mg PO DAILY 30 Days Qty: 30 0RF buprenorphine-naloxone [Suboxone] 8-2 mg Film 1 film BUCCAL TID 7 Days Qty: 21 0RF Discontinued oxcarbazepine 300 mg tablet 300 mg PO BID buspirone 10 mg tablet 10 mg PO BID olanzapine 15 mg tablet 15 mg PO BEDTIME fluoxetine 20 mg capsule 20 mg PO DAILY omeprazole 40 mg Capsule,Delayed Release(Dr/Ec) 40 mg PO DAILY buprenorphine-naloxone [Suboxone] 4-1 mg Film 1 film BUCCAL DAILY Rx Instructions: place 1 strip/tab under (each) side of tongue Discharge Orders: Discharge Order (Routine); Ordered 01/14/25 Ordered By: Leydi Story Diet: Regular diet Activity on Discharge: As tolerated Stand Alone Forms: Patient Portal Discharge page, Community Support Print Language: Syriac Care Plan Goals: Maintain mood and safe behaviors Take medications as prescribed Continue to pursue sobriety Practice coping skills Continue with outpatient providers and reach out to them as needed Health Concerns: Mood stability and behaviors Sobriety Plan of Treatment: Follow up with your PCP, psychiatric provider and other outpatient providers regarding above concerns Take medications as prescribed Assessment: Patient has insight and demonstrates good judgment in terms of wanting to pursue treatment. Patient has a safety plan that includes presenting to the closest ER or calling 911 if feeling unsafe. Discharge Date/Time: 01/14/25 12:30
[2025-01-14] MEDS: Naloxone HCl Nasal TAKE HOME 4 MG SPRAY 8 MG NOSTRILALT (11:46)
== END 2025-01-14 12:30 | disposition home or self-care (01) | DRG 751 ==
LOC: HO.ED 01-10 13:45 → HO.PADLT16 01-11 12:53
PROVIDERS: Physician Assistant Medical; Admitting Provider Registered Nurse; Emergency Provider Emergency Medicine; Responsible Provider Registered Nurse; Visit Provider Psychiatry & Neurology Psychiatry
DX: F33.2 Major depressive disorder, recurrent severe without psychotic features (principal); R45.851 Suicidal ideations; R45.850 Homicidal ideations; F11.20 Opioid dependence, uncomplicated; F17.210 Nicotine dependence, cigarettes, uncomplicated; Z71.6 Tobacco abuse counseling; F43.10 Post-traumatic stress disorder, unspecified; F10.90 Alcohol use, unspecified, uncomplicated; Z59.02 Unsheltered homelessness; Z79.899 Other long term (current) drug therapy
CPT/HCPCS: 36415; 80053; 80061; 80143; 80179; 80307; 81003; 83036; 83735; 84702; 85025; 93005; 99285; S9485

== ENCOUNTER → 2025-01-11 09:41 | Outpatient (BNV) | payer MEDICAID, SELFPAY | PROVIDERS: Admitting Provider Registered Nurse; Emergency Provider Emergency Medicine; Responsible Provider Registered Nurse; Visit Provider Internal Medicine Cardiovascular Disease | DX: R94.31 Abnormal electrocardiogram [ECG] [EKG] (principal) | CPT/HCPCS: 93010 ==

== ENCOUNTER → 2025-01-11 12:52 | Outpatient (BNV) | payer OTHER, SELFPAY | PROVIDERS: Admitting Provider Registered Nurse; Emergency Provider Emergency Medicine; Responsible Provider Registered Nurse; Visit Provider Registered Nurse | DX: F33.2 Major depressive disorder, recurrent severe without psychotic features (principal); F43.11 Post-traumatic stress disorder, acute; F10.90 Alcohol use, unspecified, uncomplicated; F11.90 Opioid use, unspecified, uncomplicated; Z59.00 Homelessness unspecified | CPT/HCPCS: 99232; 99233 ==